=== PATIENT | male | born 2000 | race Caucasian/White ===

== ENCOUNTER 2023-03-14 11:13 | Outpatient (OUT) | payer OTHER, SELFPAY ==
--- NOTE | 2023-03-14 11:16 | XR_ITS ---
The [address] [address] Patient Name: KHADAR ALONSO MRN: [id number] date: 2000 Sex: M Assigned Patient Location: RAD Current Patient Location: [facility] Accession/Order Number: [id number] Exam Date: 03/14/2023 11:16 Report Date: 03/14/2023 17:20 At the request of: ALVARO ELIZABETH Procedure: XR foot ADELINA min 3V EXAMINATION: XR foot ADELINA min 3V HISTORY: BILATERAL FOOT PAIN COMPARISON: No relevant comparison available. FINDINGS: RIGHT FINDINGS: BONES: No acute fracture or dislocation. Mild enthesopathic spurring of the calcaneus. Mild degenerative changes in the midfoot with marginal osteophyte formation SOFT TISSUES: Negative. No visible soft tissue swelling. OTHER: Negative. LEFT FINDINGS: BONES: No acute fracture or dislocation. Minimal enthesopathic spurring of the calcaneus at the Achilles insertion SOFT TISSUES: Negative. No visible soft tissue swelling. OTHER: Negative. XR/XR foot ADELINA min 3V IMPRESSION: RIGHT CONCLUSION: Mild degenerative changes LEFT CONCLUSION: Minimal degenerative changes Electronically authenticated by: MARTHA MORILLO Date: 03/14/2023 17:20
== END 2023-03-14 11:14 | disposition home or self-care (01) ==
LOC: RAD 11:16
PROVIDERS: Visit Provider Physician Assistant
DX: M79.671 Pain in right foot (principal); M79.672 Pain in left foot
CPT/HCPCS: 73630